=== PATIENT | male | born 1995 | race Two or more races ===

== ENCOUNTER 2016-07-30 14:06 | Emergency (ER) | payer OTHER ==
[~2016-07-30] VITALS: Ht 172.7 cm; Wt 63.5 kg
[2016-07-30] MEDS ORDERED: NKM (14:27)
[2016-07-30] MEDS ORDERED: IBUPROFEN600 MG ORAL (15:17)
[2016-07-30] MEDS ORDERED: Lidocaine 1% 10mg/ml/Epi 0.005mg/ml 30ml vial INJ ONE (15:30)
[2016-07-30 15:32] VITALS: BP 115/74
[2016-07-30] MEDS ORDERED: Bacitracin Oint UD TOPIC ONE ×2 (15:38→16:00)
[2016-07-30 15:48] VITALS: BP 115/74
--- NOTE | 2016-07-30 16:01 | Diagnostic Imaging Report ---
Indication: Pain Findings: 2 views of the right forearm were obtained. No acute fractures, malalignment, erosions or periostitis are identified. Bone mineralization is within normal limits. Soft tissues are unremarkable. Impression: Negative examination of the forearm.
--- NOTE | 2016-08-01 14:19 | Emergency Room Report ---
History of Present Illness General Chief Complaint: Laceration Source: Patient Present Illness HPI Patient is a 20 year old male who presented after forearm laceration after reported fall from skateboard. Patient is unsure how he cut he arm. He denies foreign body sensation. He reports having up to date tetanus vaccine. Allergies: Coded Allergies: No Known Allergies (Unverified , 07/30/16) Patient History Past Medical History: see triage record Reviewed Nursing Documentation: PMH: Agreed, PSxH: Agreed Nursing Documentation-PMH Past Medical History: No Stated History Review of Systems All Other Systems: negative except mentioned in HPI Physical Exam Vital Signs Date Time Temp Pulse Resp B/P Pulse Ox O2 Delivery O2 Flow Rate FiO2 07/30/16 14:22 98.2 75 16 112/71 99 Room Air General Appearance: well appearing, no apparent distress, alert, GCS 15 Head: normocephalic, atraumatic ENT: hearing grossly normal, normal voice Neck: full range of motion, supple Respiratory: no respiratory distress, speaking full sentences Musculoskeletal: no calf tenderness Neurologic: normal gait Psychiatric: mood/affect normal Skin: no rash, laceration - 2 cm linear supeficial Procedures Laceration/Wound Repair Laceration/Wound Repair : Consent: Verbal Wound Location: upper extremity - left 2 cm Wound's Depth, Shape: superficial Wound Length (cm): 2 Irrigated w/ Saline (ccs): 20 Betadine Prep?: No Anesthesia: Lidocaine w/ Epi Volume Anesthetic (ccs): 4 Wound Debrided: minimal Wound Repaired With: kaz - 4 Layer Closure?: No Sterile Dressing Applied?: Yes Patient Tolerated: Well Complications: None Medical Decision Making Diagnostic Impression: Primary Impression: Laceration ER Course Patient presented after laceration. Differential diagnosis included but was not limited to foreign body, nerve injury, vascular injury. Patient wound was cleanse and closed with kaz. XRAY 2 view of forearm showed no evident foreign body or fracture. Patient was advised to have wound checked in 2-3 days. Patient was to return for fever, increased swelling or pain. Last Vital Signs Date Time Temp Pulse Resp B/P Pulse Ox O2 Delivery O2 Flow Rate FiO2 07/30/16 15:48 97.9 80 16 115/74 99 Room Air Status: improved Disposition: HOME, SELF-CARE Condition: Stable Scripts Ibuprofen* (MOTRIN*) 600 Mg Tablet 600 MG ORAL Q8H Y for For Pain, #30 TAB 0 Refills Prov: Doug Luevano 07/30/16 Referrals: [facility],REFERRING (PCP) Patient Instructions: Laceration Care, Adult Doug Luevano Aug 01, 2016 14:19
== END 2016-07-30 15:48 | disposition home or self-care (01) ==
LOC: EMR 15:08
DX: S51.812A Laceration without foreign body of left forearm, initial encounter (principal); V00.131A Fall from skateboard, initial encounter; Y93.51 Activity, roller skating (inline) and skateboarding; Y92.9 Unspecified place or not applicable
CPT/HCPCS: 12001; 73090; 99284; Z7502; 99283

== ENCOUNTER 2016-08-07 10:15 | Emergency (ER) | payer OTHER ==
[~2016-08-07] VITALS: Ht 172.7 cm; Wt 59.0 kg
[~2016-08-07 10:15] MED LIST: IBUPROFEN600 MG ORAL; NKM
[2016-08-07 10:44] VITALS: BP 105/63
[2016-08-07 10:47] VITALS: BP 105/63
--- NOTE | 2016-08-09 22:12 | Emergency Room Report ---
History of Present Illness General Chief Complaint: Wound Recheck/Suture Removal Source: Patient Present Illness HPI 20-year-old male presents ED or staple removal. Patient was here approximately one week ago and had kaz placed in his forearm status post laceration from a skateboard accident. Patient is here to have kaz removed. Patient denies any complaints. Denies the pain. States the wound is well-healed. No other aggravating relieving factors. Denies any other associated symptoms Allergies: Coded Allergies: No Known Allergies (Unverified , 07/30/16) Patient History Past Medical History: none Past Surgical History: none Pertinent Family History: none Social History: Denies: alcohol use, drug use, smoking Immunizations: UTD Reviewed Nursing Documentation: PMH: Agreed, PSxH: Agreed Nursing Documentation-PMH Past Medical History: No Stated History Review of Systems All Other Systems: negative except mentioned in HPI Physical Exam Vital Signs Date Time Temp Pulse Resp B/P Pulse Ox O2 Delivery O2 Flow Rate FiO2 08/07/16 10:27 98.1 54 14 105/63 98 Room Air Sp02 EP Interpretation: reviewed, normal General Appearance: no apparent distress, alert, GCS 15, non-toxic Head: normocephalic Eyes: bilateral eye PERRL, bilateral eye normal inspection ENT: normal ENT inspection Neck: normal inspection Respiratory: normal inspection Cardiovascular #1: normal inspection Gastrointestinal: normal inspection Rectal: deferred Genitourinary: no CVA tenderness Musculoskeletal: back normal, gait/station normal, normal range of motion, non- tender Neurologic: alert, oriented x3, responsive, motor strength/tone normal, sensory intact, speech normal Psychiatric: judgement/insight normal, memory normal, mood/affect normal, no suicidal/homicidal ideation Skin: other - wound C/D/I. wound well approximated by 3 kaz. Lymphatic: normal inspection Medical Decision Making Diagnostic Impression: Primary Impression: Encounter for staple removal ER Course Patient presents to the emergency department today for staple removal. patient' s wound appears well-healed, and kaz are ready to be removed today. Using sterile technique the kaz were removed patient tolerated procedure well without any difficulty. Patient was given device in how to care for the wound patient is advised followup with his private care doctor in 2-3 days and return to emergency room for any worsening conditions as needed Last Vital Signs Date Time Temp Pulse Resp B/P Pulse Ox O2 Delivery O2 Flow Rate FiO2 08/07/16 10:47 98.1 14 105/63 98 Room Air 08/07/16 10:27 54 Status: improved Disposition: HOME, SELF-CARE Condition: Stable Referrals: [facility],REFERRING (PCP) Patient Instructions: Stitches, Kaz, or Adhesive Wound Closure, Easy-to- Read REINIER YEUNG M.D. Aug 09, 2016 22:12
== END 2016-08-07 10:50 | disposition home or self-care (01) ==
LOC: EMR 10:40
DX: Z48.02 Encounter for removal of sutures (principal)
CPT/HCPCS: 99281